=== PATIENT | male | born 1950 | race Caucasian/White ===

== ENCOUNTER 2016-05-07 07:36 | Emergency (ER) | payer MEDICARE ==
[2016-05-07 08:05] LABS: Hematocrit 49 % (42-52); Hemoglobin 16.4 g/dl (14.0-18.0); Mean Corpuscular HGB Conc 34 g/dl (31-36); Mean Corpuscular Hemoglobin 32 pg (27-31); Mean Corpuscular Volume 94 fL (80-94); Mean Platelet Volume 9 um3 (7.4-10.4); Red Blood Count 5.17 10^6/ul (4.0-5.4); Red Cell Distribution Width 13 % (10.5-15); White Blood Count 4.1 10^3/ul (3.5-10.8)
[2016-05-07 08:32] LABS: Albumin 4.1 g/dL (3.2-5.2); BUN/Creatinine Ratio 21.5 (8-20); EGFR African American 104.5 (>60); EGFR Non-African American 81.3 (>60); Globulin 2.3 g/dL (2-4); Magnesium 2.1 mg/dL (1.9-2.7); Potassium 4.5 mmol/L (3.5-5.0); Total Bilirubin 0.7 mg/dL (0.2-1.0); Total Protein 6.4 g/dL (6.4-8.9)
[2016-05-07] MEDS ORDERED: Meclizine TAB* 12.5 MG PO ONE ×2 (08:48→08:50)
[2016-05-07 08:55] LABS: Urine Bilirubin Negative (Negative); Urine Glucose Negative (Negative); Urine Nitrite Negative (Negative)
[2016-05-07 09:13] LABS: TSH (Thyroid Stimulating Horm) 0.78 mcIU/mL (0.34-5.60)
[2016-05-07] MEDS ORDERED: NS 0.9% 1000 ML* 1,000 ML IV ONE (10:45)
--- NOTE | 2016-05-07 10:51 | ED ---
Quoc Brice Benjamin, scribed for Erica Campuzano MD on 05/07/16 at 0757 . Dizziness - HPI Summary HPI Summary: 65yo male c/o intermittent room spinning and lightheadedness dizzy after head movements for a couple of days. Pt started experiencing dizziness when lifting head back to standing position from leaning forward. Pt reports recently changing his meds last week. Pt denies double vision, difficulty swallowing or speaking, or any problems in ears. Hx includes HTN and hypercholesterolemia and FHx of [place] and Menieres dz. - History Of Current Complaint Chief Complaint: EDDizziness Stated Complaint: DIZZY Time Seen by Provider: 05/07/16 07:39 Hx Obtained From: Patient Onset/Duration: Unknown Timing: Minutes Severity Initially: Moderate Severity Currently: None Character: Room Spinning, Lightheaded Aggravating Factor(s): Change In Head Position Alleviating Factor(s): Rest, Turning Head Associated Signs And Symptoms: Positive: Negative. Negative: Visual Changes, Slurred Speech - Allergies/Home Medications Allergies/Adverse Reactions: Allergies Allergy/AdvReac Type Severity Reaction Status Date / Time No Known Allergies Allergy Verified 05/07/16 07:47 PMH/Surg Hx/FS Hx/Imm Hx Cardiovascular History: Reports: Hx Hypercholesterolemia, Hx Hypertension - ON MEDICATION FOR Denies: Hx Pacemaker/ICD GI History: Reports: Hx Gastroesophageal Reflux Disease - HX OF, NOT AT PRESENT History: Reports: Hx Kidney Stones - HX OF-ROUTINE MEDICATION FOR Musculoskeletal History: Reports: Hx Arthritis - ARM AND HANDS, Hx Tendonitis - ARM AND HANDS Sensory History: Reports: Hx Contacts or Glasses - GLASSES Denies: Hx Hearing Aid Opthamlomology History: Reports: Hx Contacts or Glasses - GLASSES Psychiatric History: Denies: Hx Panic Disorder Infectious Disease History: Yes Infectious Disease History: Denies: Traveled Outside the [place] in Last 30 Days - Family History Known Family History: Positive: Cardiac Disease, Other - Menieres dz. - Social History Occupation: Employed Full-time Lives: With Family Alcohol Use: Weekly Substance Use Type: Reports: None Smoking Status (MU): Never Smoked Tobacco Review of Systems Constitutional: Negative Eyes: Negative ENT: Negative Cardiovascular: Negative Respiratory: Negative Gastrointestinal: Negative Genitourinary: Negative Musculoskeletal: Negative Skin: Negative Neurological: Other - lightheadedness and roomspinning Psychological: Normal All Other Systems Reviewed And Are Negative: Yes Physical Exam Triage Information Reviewed: Yes Vital Signs On Initial Exam: Initial Vitals Temp Pulse Resp BP Pulse Ox 97.0 F 72 13 161/90 96 05/07/16 07:36 05/07/16 07:36 05/07/16 07:36 05/07/16 07:36 05/07/16 07:36 Vital Signs Reviewed: Yes Appearance: Positive: Well-Appearing, No Pain Distress, Well-Nourished Skin: Positive: Warm, Skin Color Reflects Adequate Perfusion, Dry Head/Face: Positive: Normal Head/Face Inspection Eyes: Positive: Other: - On Upward and rightward gaze, he has few beats of lateral nystagmus ENT: Positive: Hearing grossly normal, Pharynx normal, TMs normal. Negative: TM dull, TM red Neck: Positive: Supple, Nontender Respiratory/Lung Sounds: Positive: Clear to Auscultation, Breath Sounds Present Cardiovascular: Positive: RRR Abdomen Description: Positive: Nontender, No Organomegaly, Soft Bowel Sounds: Positive: Present Musculoskeletal: Positive: Normal, Strength/ROM Intact Neurological: Positive: Normal - stroke scale: 0, Sensory/Motor Intact, Alert, Oriented to Person Place, Time, CN Intact II-III - [place] Coma Scale Coma Scale Total: 15 Diagnostics - Vital Signs Vital Signs Temp Pulse Resp BP Pulse Ox 05/07/16 07:42 75 153/84 05/07/16 07:36 97.0 F 72 13 161/90 96 - Laboratory Lab Results: Lab Results 05/07/16 05/07/16 05/07/16 Range/Units 07:55 07:55 07:55 WBC 4.1 (3.5-10.8) 10^3/ul RBC 5.17 (4.0-5.4) 10^6/ul Hgb 16.4 (14.0-18.0) g/dl Hct 49 (42-52) % MCV 94 (80-94) fL MCH 32 H (27-31) pg MCHC 34 (31-36) g/dl RDW 13 (10.5-15) % Plt Count 124 L (150-450) 10^3/ul MPV 9 (7.4-10.4) um3 Neut % (Auto) 66.6 (38-83) % Lymph % (Auto) 19.4 L (25-47) % [place] % (Auto) 10.6 H (1-9) % Eos % (Auto) 2.6 (0-6) % Baso % (Auto) 0.8 (0-2) % Absolute Neuts (auto) 2.7 (1.5-7.7) 10^3/ul Absolute Lymphs (auto) 0.8 L (1.0-4.8) 10^3/ul Absolute Monos (auto) 0.4 (0-0.8) 10^3/ul Absolute Eos (auto) 0.1 (0-0.6) 10^3/ul Absolute Basos (auto) 0 (0-0.2) 10^3/ul Absolute Nucleated RBC 0 10^3/ul Nucleated RBC % 0.1 Sodium 137 (133-145) mmol/L Potassium 4.5 (3.5-5.0) mmol/L Chloride 107 (101-111) mmol/L Carbon Dioxide 25 (22-32) mmol/L Anion Gap 5 (2-11) mmol/L BUN 20 (6-24) mg/dL Creatinine 0.93 (0.67-1.17) mg/dL Est GFR ( Amer) 104.5 (>60) Est GFR (Non-Af Amer) 81.3 (>60) BUN/Creatinine Ratio 21.5 H (8-20) Glucose 127 H (70-100) mg/dL Lactic Acid 0.7 (0.5-2.0) mmol/L Calcium 9.0 (8.6-10.3) mg/dL Magnesium 2.1 (1.9-2.7) mg/dL Total Bilirubin 0.70 (0.2-1.0) mg/dL AST 22 (13-39) U/L ALT 22 (7-52) U/L Alkaline Phosphatase 78 (34-104) U/L Troponin I 0.00 (<0.04) ng/mL Total Protein 6.4 (6.4-8.9) g/dL Albumin 4.1 (3.2-5.2) g/dL Globulin 2.3 (2-4) g/dL Albumin/Globulin Ratio 1.8 (1-3) TSH 0.78 (0.34-5.60) mcIU/mL Urine Color Urine Appearance Urine pH (5-9) Ur Specific [place] (1.010-1.030) Urine Protein (Negative) Urine Ketones (Negative) Urine Blood (Negative) Urine Nitrate (Negative) Urine Bilirubin (Negative) Urine Urobilinogen (Negative) Ur Leukocyte Esterase (Negative) Urine Glucose (Negative) 05/07/16 Range/Units 08:25 WBC (3.5-10.8) 10^3/ul RBC (4.0-5.4) 10^6/ul Hgb (14.0-18.0) g/dl Hct (42-52) % MCV (80-94) fL MCH (27-31) pg MCHC (31-36) g/dl RDW (10.5-15) % Plt Count (150-450) 10^3/ul MPV (7.4-10.4) um3 Neut % (Auto) (38-83) % Lymph % (Auto) (25-47) % [place] % (Auto) (1-9) % Eos % (Auto) (0-6) % Baso % (Auto) (0-2) % Absolute Neuts (auto) (1.5-7.7) 10^3/ul Absolute Lymphs (auto) (1.0-4.8) 10^3/ul Absolute Monos (auto) (0-0.8) 10^3/ul Absolute Eos (auto) (0-0.6) 10^3/ul Absolute Basos (auto) (0-0.2) 10^3/ul Absolute Nucleated RBC 10^3/ul Nucleated RBC % Sodium (133-145) mmol/L Potassium (3.5-5.0) mmol/L Chloride (101-111) mmol/L Carbon Dioxide (22-32) mmol/L Anion Gap (2-11) mmol/L BUN (6-24) mg/dL Creatinine (0.67-1.17) mg/dL Est GFR ( Amer) (>60) Est GFR (Non-Af Amer) (>60) BUN/Creatinine Ratio (8-20) Glucose (70-100) mg/dL Lactic Acid (0.5-2.0) mmol/L Calcium (8.6-10.3) mg/dL Magnesium (1.9-2.7) mg/dL Total Bilirubin (0.2-1.0) mg/dL AST (13-39) U/L ALT (7-52) U/L Alkaline Phosphatase (34-104) U/L Troponin I (<0.04) ng/mL Total Protein (6.4-8.9) g/dL Albumin (3.2-5.2) g/dL Globulin (2-4) g/dL Albumin/Globulin Ratio (1-3) TSH (0.34-5.60) mcIU/mL Urine Color Yellow Urine Appearance Cloudy Urine pH 7.0 (5-9) Ur Specific [place] 1.017 (1.010-1.030) Urine Protein Negative (Negative) Urine Ketones Negative (Negative) Urine Blood Negative (Negative) Urine Nitrate Negative (Negative) Urine Bilirubin Negative (Negative) Urine Urobilinogen Negative (Negative) Ur Leukocyte Esterase Negative (Negative) Urine Glucose Negative (Negative) Result Diagrams: 05/07/16 07:55 05/07/16 07:55 Lab Statement: Any lab studies that have been ordered have been reviewed, and results considered in the medical decision making process. - EKG 0729. Cardiac Rate: NL EKG Rhythm: Sinus Rhythm ST Segment: Normal Ectopy: None EKG Comparison: Other - no prior EKG to compare Dizzy Course/Dx - Course Course Of Treatment: Pt with clear symptoms of BPV symptoms are positional long lasting and he has lateral nystagmus on upward and lateral gaze. Case presented to Dr. Kim of neurology who agreed with plan. Pt much better after first dose but still feeling slightly vertiginous and has to drive 40 miles home. Plan is to give a liter of fluid and a meal and if pt feels completely better he will be discharged - Diagnoses Provider Diagnoses: Benign positional vertigo Discharge - Discharge Plan Condition: Stable Disposition: HOME Prescriptions: Meclizine TAB* [Antivert 12.5 TAB*] 25 mg PO TID PRN #20 tab PRN Reason: Dizziness The documentation as recorded by the Quoc gupta Benjamin accurately reflects the service I personally performed and the decisions made by me, Erica Campuzano MD.
--- NOTE | 2016-05-07 14:46 | ED ---
I, Jimi Kumari, scribed for Erica Campuzano MD on 05/07/16 at 1415 . Progress - Progress Note Progress Note: Addendum for Dr. Campuzano's chart. Discussed pt care with: Dr. Gupta (hospitalist) for admission @ 1305. Dr. Perez (Neurology) @1400. 1445 pt much better after eppley maneuver ok to go home Course/Dx - Course Course Of Treatment: Pt with clear symptoms of BPV symptoms are positional long lasting and he has lateral nystagmus on upward and lateral gaze. Case presented to Dr. Kim of neurology who agreed with plan. Pt much better after first dose but still feeling slightly vertiginous and has to drive 40 miles home. Plan is to give a liter of fluid and a meal and if pt feels completely better he will be discharged - Diagnoses Provider Diagnoses: Benign positional vertigo The documentation as recorded by the Quoc gupta Benjamin accurately reflects the service I personally performed and the decisions made by me, Erica Campuzano MD.
[2016-05-07 14:48] VITALS: BP 159/84
--- NOTE | 2016-05-07 15:47 | CONSULT ---
Consult Consult: 05/07/16 neurology consult 65 yo RHM, p/w recurrent and generally brief and self limited episodes of positional vertigo over the past 3-4 weeks. Most of the episodes have lasted just a few seconds each, although he has had 3 scattered ones, including the one prompting his ED visit today, lasting from 45 min up to hours in an on off fashion. The episodes are precipitated by head turning or position changes, eg bending over, turning his head when laying down in bed, tilting his head back to drain the bottom of a glass. He has no other focal complaints, specifically no visual, hearing, bulbar, facial or limb sensorimotor issues; he is on a baby ASA at baseline. He apparently had reproducible nystagmus for the ED earlier per report. 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 Plantar responses are flexor Coordination: finger to nose is accurate Gait: normal casual gait; narrow base; Romberg negative; heel and toe and tandem walking all intact Serologies: Chem, LFT, trop, tsh, ua are all normal or negative; cbc ok save plt 124 Priors: none Imaging: none Impression: 67 year old with BPPV. His story is classic; his neuro exam is non localizing. We discussed disease pathophys and treatment with canalith repositioning maneuvers; he can also find good videos for these (if symptomatic in the future ) on [employer], [place]. From a neuro standpoint he can be discharged home.
== END 2016-05-07 14:52 | disposition home or self-care (01) ==
LOC: ED 07:36
DX: R42 Dizziness and giddiness (principal)
CPT/HCPCS: 36415; 80053; 81003; 83605; 83735; 84443; 84484; 85025; 93005; 99283; A9270-GY